=== PATIENT | male | born 1995 | race African-American/Black ===

== ENCOUNTER 2017-07-31 00:54 | Emergency (ER) | payer MEDICAID | END 2017-07-31 02:07 | disposition home or self-care (01) | LOC: D.ER 00:54 | DX: J01.90 Acute sinusitis, unspecified (principal) ==

== ENCOUNTER 2019-03-12 19:32 | Emergency (ER) | payer SELFPAY ==
[~2019-03-12] VITALS: Ht 170.2 cm; Wt 65.9 kg
[2019-03-12 19:35] VITALS: Ht 170.2 cm; Wt 65.9 kg
[2019-03-12] MEDS ORDERED: TRILEPTAL600 MG PO ×2 (19:36→23:01)
[2019-03-12 20:02] LABS: BASOPHILS 0.1 % (0-2); EOSINOPHILS 0.4 % (0-7); HEMATOCRIT 42.2 % (42.0-54.0); HEMOGLOBIN 13.9 g/dL (13.5-17.5); IMMATURE GRANULOCYTES 0.3 % (0-5); LYMPHOCYTES 20.4 % (15-50); MCH 24.2 pg (26.0-34.0); MCHC 32.9 g/dL (31.0-37.0); MCV 73.5 fL (80.0-100.0); MEAN PLATELET VOLUME 10.6 fL (7.4-10.4); MONOCYTES 8.3 % (2-11); NEUTROPHILS 70.5 % (40-80); PLATELET COUNT 208 10x3/uL (130-400); RBC 5.74 10x6/uL (4.20-6.10); RDW 13.8 % (11.5-14.5); WBC 7.3 10x3/uL (4.8-10.8)
[2019-03-12 20:14] LABS: CALC OSMOLALITY 274 mosm/kg (275-300); CALCIUM 9.1 mg/dL (8.5-10.1); CARBON DIOXIDE 25.2 mmol/L (21.0-32.0); CHLORIDE - SERUM 101 mmol/L (98-107); SODIUM 138 mmol/L (136-145); UREA NITROGEN 9 mg/dL (7-18); eGFR NON AFRICAN AMERICAN > 90 mL/min (90-120)
[2019-03-12 20:18] LABS: GLUCOSE 95 mg/dL (74-106)
[2019-03-12 20:20] LABS: ALBUMIN 3.9 g/dL (3.4-5.0); ALKALINE PHOSPHATASE 112 U/L (46-116); ALT (SGPT) 48 U/L (10-68); BILIRUBIN - TOTAL 0.38 mg/dL (0.2-1.3); MAGNESIUM - SERUM 2.3 mg/dL (1.8-2.4); PROTEIN - SERUM 7.9 g/dL (6.4-8.2)
[2019-03-12 20:23] LABS: APPEARANCE CLEAR (CLEAR); BILIRUBIN NEGATIVE (NEGATIVE); COLOR YELLOW (YELLOW); GLUCOSE NEGATIVE (NEGATIVE); KETONE SMALL mg/dL (NEGATIVE); NITRITE NEGATIVE (NEGATIVE); PROTEIN TRACE mg/dL (NEGATIVE); UROBILINOGEN NORMAL (NORMAL)
[2019-03-12 20:29] LABS: UDS - AMPHET NEGATIVE QUAL (NEGATIVE); UDS - BARB NEGATIVE QUAL (NEGATIVE); UDS - BENZO NEGATIVE QUAL (NEGATIVE); UDS - COCAINE NEGATIVE QUAL (NEGATIVE); UDS - OPIATE NEGATIVE QUAL (NEGATIVE); UDS - PCP NEGATIVE QUAL (NEGATIVE); UDS - THC NEGATIVE QUAL (NEGATIVE)
[2019-03-12 23:25] VITALS: BP 129/76
== END 2019-03-12 23:25 | disposition home or self-care (01) ==
LOC: D.ER 19:32
PROVIDERS: Family Medicine
DX: G40.909 Epilepsy, unspecified, not intractable, without status epilepticus (principal)